=== PATIENT | male | born 1955 | race Caucasian/White ===

== ENCOUNTER 2018-06-23 16:00 | Inpatient (IN) ==
[2018-07-21] MEDS ORDERED: ceFAZolin Inj 2gm (Premix) 2 GM/50 ML BAG IV ONE ×2 (06:00→08:03)
[2018-07-21] MEDS ORDERED: Nasal Sanitizer POPSWAB ampule 3 AMP (Nozin) PREOP DOSE ENOS SCH (06:00)
[2018-07-21] MEDS ORDERED: SODIUM CHLORIDE 0.9% IV ONE (06:00)
[2018-07-21] MEDS ORDERED: VANCOMYCIN IV ONE (06:00)
[2018-07-21] MEDS ORDERED: Lactated Ringers 1,000 ML PRIMARY IV ONE ×5 (06:00→17:00)
[2018-07-21] MEDS ORDERED: LIDOCAINE W/ SODIUM BICARB 0.5 ML SYR SUBD ONE (06:00)
[2018-07-21] MEDS ORDERED: LIDOCAINE W/ SODIUM BICARB 0.5 ML SYR ONE (08:04)
[2018-07-21 08:50] LABS: BILIRUBIN,URINE NEGATIVE (NEG); CLARITY,URINE CLEAR (CLEAR); COLOR,URINE YELLOW (Y); GLUCOSE, URINE (UA) NEGATIVE (NEG); OCCULT BLOOD,URINE NEGATIVE (NEG); PH,URINE 5.5 (5.0-8.5); PROTEIN,URINE NEGATIVE (NEG); UROBILINOGEN,URINE 0.2 EU/dL (0.2)
[2018-07-21 08:52] LABS: URINE SAMPLE TYPE CLEAN CATCH URINE
[2018-07-21] MEDS ORDERED: MIDAZOLAM 5 MG/1 ML ONE (10:34)
[2018-07-21] MEDS ORDERED: fentaNYL Inj 250 MCG/5 ML VIAL ONE (10:34)
[2018-07-21] MEDS ORDERED: LIDOCAINE MPF 2% - 5 ML (20 MG/1 ML) ONE (10:35)
[2018-07-21] MEDS ORDERED: DEXAMETHASONE PF 10 MG/1 ML VIAL ONE (10:35)
[2018-07-21] MEDS ORDERED: KETOROLAC 30 MG/1 ML VIAL ONE (10:35)
[2018-07-21] MEDS ORDERED: Propofol 1,000 MG/100 ML VIAL IV ONE ×3 (10:35→14:54)
[2018-07-21] MEDS ORDERED: FAMOTIDINE 20 MG/2 ML VIAL IVP ONE (10:36)
[2018-07-21] MEDS ORDERED: REMIFENTANIL HCL 2 MG VIAL IV ONE ×3 (10:41→15:55)
[2018-07-21] MEDS ORDERED: Sodium Chloride 0.9% vial 10 ML ONE (11:43)
[2018-07-21] MEDS ORDERED: BACITRACIN 50,000 UNIT VIAL IRRIG ONE (11:43)
[2018-07-21] MEDS ORDERED: THROMBIN (BOVINE) 20,000 UNIT KIT TOPICAL ONE ×2 (11:43→14:01)
[2018-07-21] MEDS ORDERED: Vancomycin Inj 1gm vial ONE (11:43)
[2018-07-21] MEDS ORDERED: KETAMINE 100 MG/1 ML - 5 ML ONE (11:49)
[2018-07-21] MEDS ORDERED: Acetaminophen 1000mg Inj 1,000 MG/100 ML VIAL IV ONE (11:56)
[2018-07-21] MEDS ORDERED: ePHEDrine Inj 50 MG/ML AMP ONE (12:39)
--- NOTE | 2018-07-21 17:10 | OPNOTE.NEU ---
Operative Note Operative Note: Neurosurgical Services Operative Note [facility] [id number] Mathew Apodaca Date of Surgery: 07/21/18 Preoperative Diagnosis: Lumbar Spondylolisthesis, Lumbar Radiculopathy Post-Op Diagnosis Codes: Same Procedure(s): 1. Posterior decompression with complete facetectomy, 41370 -CSF fistula repair with laminectomy; 90270 2. Inner body arthrodesis; 3. Implantation Insert and Rotate Allograft Bone Spacer, 4. Non-segmental pedicle screw instrumentation, 5. Inner transverse fusion; () 6. Preparation of graft: A. [place] of local bone graft; same incision, B. [place] of morselized graft iliac crest; different incision; C. Bone marrow aspirate, D. Allograft demineralized bone matrix and calcium osteopromotive compound, 7. Intraoperative microscopy, microsurgical technique 8. Intraoperative fluoroscopy; [id number] 9. Continuous intraoperative motor and sensory monitoring Surgeon(s): Conor Mcneal MD Neurology Nurse(s): IAN Hernandez, IAN Mathew Anesthesia: General Anesthesia Anesthesiologist / CARE INFORMATION ASSOCIATE: Marnie Hunt CRNA Brief Findings: Severe neural compression in the foramen and in the spinal canal. Procedure(s): We discussed the procedure, risks, advantages and disadvantages of surgical intervention at length. To prevent further pain, disability and potential progression of neurologic deficits, the patient would like to proceed with surgery. Introduction: After obtaining informed consent, careful consideration of the pre-operative studies and evaluation, the patient asked to proceed with surgery. The patient was taken to the operating room, given an anesthetic, positioned and prepared for surgery. All pressure points were meticulously padded and great care was taken to insure the patient was appropriately positioned to avoid any abnormal strain on the extremities or any other area. The operative region was prepared with iodine solution and isolated aseptically using routine sterile draping. Position / Approach: The patient was placed in the prone position such that a posterior approach could be taken to the lumbar spine. EXPOSURE: A midline incision was opened sharply and extended slightly cephalad and caudad so as to incorporate the abnormal level of the patient's spine using the fluoroscope for visualization and planning. Dissection was carried with electrocautery through the subcutaneous tissues then subperiosteally along the spinous processes then lamina laterally to the transverse processes of L4 and L5. A self retaining retractor was inserted. CSF FISTULA REPAIR: As dissection continued through the subcutaneous fat in the sacral region, we note CSF egressing from deep within the wound. The leakage was traced to the L5-S1 inner-laminar space. There was a midline opeing in the dura I suspect from a previous injection. The bone (lamina) and ligamentum was removed with rongeurs. Proline, 6-0, was then used to close the opening in a water-tight manner. DECOMPRESSION: As the spine was exposed, it was clear that the involved joint was markedly incompetent. The joint was removed medial to lateral confirming there was foraminal stenosis from herniated disk as well as calcification which extended out into the foramen bilaterally. To adequately decompress the level, both facets were completely removed. The decompression was much more extensive then would be required for placement of a posterior arthrodesis alone. Both the traversing as well as the exiting nerve roots were decompressed on each side. There was herniated disk beneath the thecal sac and removal with down biting curettes with minimal manipulation of the thecal sac. Annulotomies were placed bilaterally and disk distractor's were placed in the disk space. While distracting, a radical discectomy was performed bilaterally. The epidural space was explored extensively also to confirm no further pressure was present on any of the exiting or traversing neural elements. ARTHRODESIS: The endplates above and below the abnormal disk were scraped of cartilaginous tissue and allograft insert and rotate machined bone graft spacers were placed bilaterally. The space between the bone graft was preloaded with the bone graft mixture described below, and this mixture was also placed lateral to the bone spacers within the disk space. The bone spacers were countersunk appropriately using the fluoroscope for visualization. HARVEST / PREPARATION of BONE GRAFT: The "bone graft" was prepared from the patient's own bone derived from the left hip collected by curetting bone from the hip through a separate slab incision(). This morselized bone was admixed with bone marrow aspirate also obtained from the hip (). Autologous local bone which was removed during the decompression through the same incision used for the fusion was stripped of surrounding soft tissues, morselized () and mixed with osteopromotive calcium compound as well as allograft demineralized bone matrix ([id number]), and this was combined with the previously described hip graft and concentrated bone marrow aspirate to form the "bone graft." NON SEGMENTAL INSTRUMENTATION: The pedicles of above and below the abnormal disk were then identified under direct vision as well as using the fluoroscope for visualization. The pedicles were probed and tapped and pedicle screws were advanced, which were further tested using motor stimulation and monitoring. The screws were identified to have appropriate impedances suggesting no evidence of any contact with the surrounding neural elements. Having placed pedicle screws, they were interconnected with rods, and a cross-link was placed. INNER TRANSVERSE FUSION: Attention was directed to the lateral aspect of the spine. The transverse processes above and below the level were eburnated using a high speed drill equipped with a sanket bur. Between this region of bone, the patient's own bone, described previously as "bone graft mixture", consisting of allograft, demineralized bone matrix, calcium compound, bone marrow aspirate, as well as morselized graft from the hip were placed between the transverse processes. OTHER TOOLS USED / UTILITY: All manipulation of the neural elements was performed using the microscope for visualization. As well, the fluoroscope was used to confirm the levels as indicated as well as to assist during implant placement and later to assess the patient's spinal alignment. There were no intra operative complications. Motor and sensory monitoring was performed throughout the procedure by a certified monitoring manometer technician in the room in communication with a remote monitoring physician and no abnormal neurological findings were encountered. NEED FOR BRIEF WRITER: Josh Boo PA-C, was instrumental throughout the operation to assist with exposure of the neural structures and protect them as the bony elements were removed. He was also instrumental during placement of the implant(s) which often takes more than two hands to perform safely and efficiently. Dionne Garcia also assisted and functioned in an identical manner. CLOSURE: Thereafter, the wound was irrigated with copious amounts of antibiotic impregnated saline solution. Immaculate hemostasis was achieved using thrombin soaked Gelfoam, bone wax along the bony margins, as well as electrocautery. The wound was then closed in anatomical layers using Vicryl suture in the subcutaneous tissues followed by dermabond and meseret on the skin. Estimated blood loss was less than 250 cc and none was replaced. Following the procedure the patient will be returned to the supine position then transferred to the recovery room, anticipating them to be in stable condition as compared to pre- surgically. Estimated Blood Loss: 250 cc Operative hemorrhage? Yes, expected amount. Drains: Hemovas Condition: Good Complications: None Authenticated by Dr. Mcneal On Production
[2018-07-21] MEDS ORDERED: Zolpidem Tab 5 MG TAB PO PRN (18:03)
[2018-07-21] MEDS ORDERED: LABETALOL 20 MG/4 ML (5 MG/1 ML) SYRINGE IVP PRN (18:03)
[2018-07-21] MEDS ORDERED: CALCIUM CARBONATE 500 MG (TUMS) CHEWABLE TABLET PO PRN (18:03)
[2018-07-21] MEDS ORDERED: Ondansetron ODT Tab 4 MG TAB PO PRN (18:03)
[2018-07-21] MEDS ORDERED: MORPHINE SULFATE 2 MG/1 ML IVP PRN (18:03)
[2018-07-21] MEDS ORDERED: HYDRALAZINE 20 MG/1 ML IVP PRN (18:03)
[2018-07-21] MEDS ORDERED: ACETAMINOPHEN 325 MG TABLET PO PRN (18:03)
[2018-07-21] MEDS ORDERED: ONDANSETRON 4 MG/2 ML VIAL IVP PRN (18:03)
[2018-07-21] MEDS ORDERED: DIAZEPAM 5 MG TABLET PO PRN (18:03)
--- NOTE | 2018-07-21 18:36 | CRNA.PROGR ---
Anesthesia Time - Procedure/Recovery Time Start Date: 07/21/18 Anesthesia : Time In: 12:01 Anesthesia : Time Out: 17:00 - Other Weight: 114.577 kg Height: 6 ft 1 in Body Mass Index (BMI): 33.3 Physical Status: P2 Anesthesia Type: General Anesthesia : ET
[2018-07-21] MEDS: KETOROLAC 15 MG/1 ML VIAL IVP SCH (19:15)
[2018-07-21] MEDS: D5-1/2NS + 20mEq KCL 1,000 ML PRIMARY IV SCH (19:16)
[2018-07-21] MEDS: ceFAZolin Inj 1 GM in Sodium Chloride 0.9% 100 ML IV SCH (19:16)
[2018-07-21] MEDS: oxyCODONE-ACETAMINOPHEN 5-325 TAB PO PRN (20:41)
[2018-07-22] MEDS: KETOROLAC 15 MG/1 ML VIAL IVP SCH ×4 (01:58→20:50)
[2018-07-22] MEDS: ceFAZolin Inj 1 GM in Sodium Chloride 0.9% 100 ML IV SCH ×3 (04:11→19:24)
[2018-07-22] MEDS: D5-1/2NS + 20mEq KCL 1,000 ML PRIMARY IV SCH ×2 (04:11→18:38)
[2018-07-22] MEDS: oxyCODONE-ACETAMINOPHEN 5-325 TAB PO PRN ×4 (04:20→20:51)
[2018-07-22 05:31] LABS: BASOPHILS # (AUTO) 0 10*3/UL; BASOPHILS % (AUTO) 0 % (0-1); EOSINOPHILS # (AUTO) 0 10*3/UL; EOSINOPHILS % (AUTO) 0 % (0-8); Hematocrit [HCT] 36.9 % (42.0-52.0); Hemoglobin [HGB] 11.9 g/dL (14.0-18.0); LYMPHOCYTES # (AUTO) 0.73 10*3/uL; MEAN CORPUSCULAR HGB CONC 32.2 g/dL (33-37); MEAN CORPUSCULAR VOLUME 83.7 FL (80-90); MEAN PLATELET VOLUME 11.5 FL (7.4-12.2); MONOCYTES # (AUTO) 0.47 10*3/UL (0.3-0.8); MONOCYTES % (AUTO) 4.1 % (5-15); NEUTROPHILS # (AUTO) 10.22 10*3/UL; NEUTROPHILS % (AUTO) 89.3 % (50-80); RED BLOOD COUNT 4.41 10^6/uL (4.70-6.10)
[2018-07-22 05:42] LABS: BLOOD UREA NITROGEN 18 mg/dL (7-22); BUN/CREATININE RATIO 16.36 (6-20)
[2018-07-22 05:46] LABS: PLATELET MORPHOLOGY COMMENT NORMAL MORPHOLOGY (NORM); RBC MORPHOLOGY COMMENT NORMAL MORPHOLOGY (NORM); WBC MORPHOLOGY COMMENT NORMAL MORPHOLOGY (NORM)
[2018-07-22] MEDS: Terazosin Cap 5 MG CAP PO SCH (08:49)
--- NOTE | 2018-07-22 09:55 | NEURO.PROG ---
Subjective Post Op Day: One Pain Management: PO Ny Catheter: No Flatus: Yes Diet: Regular Ambulating: Yes Date of Service: 07/22/18 Interval History: Mr. Apodaca is post op day one, s/p posterior lumbar discectomy and inner body fusion, single level at L4-5. He is doing well, ambulating with no difficulty. He reports his pain is controlled . Objective : Data - Labs CBC and BMP: 07/22/18 04:39 07/22/18 04:39 - Vital Signs Vital Signs and I&O: Vital Signs - Last Taken Temperature 99.4 F 07/22/18 04:32 Pulse Rate 88 07/22/18 04:32 Respiratory Rate 16 07/22/18 04:32 Blood Pressure 111/60 07/22/18 04:32 Pulse Ox 96 07/22/18 04:32 Intake and Output (24hr x 4 totals) 07/20/18 07/21/18 07/22/18 07/23/18 05:59 05:59 05:59 05:59 Intake Total 4994 / 4994 Output Total 2150 / 2150 Balance 2844 / 2844 Objective : Exam - General General Appearance: No Acute Distress, Cooperative - Head Head Exam: Normal Inspection - Eye Eye Exam: Normal Appearance - ENT Additonal ENT Exam Details: patent airway and no difficulty with swallowing. - Neck Neck Exam: Normal Inspection, Full ROM - Respiratory Respiratory Exam: Breathing Non Labored - Cardiovascular Cardiovascular Exam: RRR - GI/Abdominal GI/Abdominal Exam: Non Tender, Non Distended - Rectal Rectal Exam: Deferred - External Exam: Deferred - Extremities Extremities Exam: Normal Inspection, Full ROM - Back Additional Back Exam Details: Midline lumbar post surgical wound intact. Surgical drain present with increased output. Not removed yet. - Neurological Neurological Exam: Alert, Oriented x 3, Normal Gait - Psychiatric Psychiatric Exam: Normal Affect, Normal Mood - Integumentary Integumentary Exam: Normal Color, Warm Additional Integumentary Exam Details: Intact surgical lumbar surgical wound. - Central Line Examination Central Line Present on Admission: No Assessment and Plan - Assessment / Plan Additional Assessment/Plan Details: Post op day 1, s/p L4-5 single level posterior lumbar discectomy and inner body fusion. He is doing well and ambulating with no difficulty, with physical therapy. Monitor surgical drain out and possible discharge late this afternoon -vs- tomorrow. Continue physical therapy.
--- NOTE | 2018-07-22 12:46 | CRNA.PROGR ---
Anesthesia Note - Progress Notes Anesthesia Progress Note: Lying in bed. States he's quite comfortable. Rates his pain at 3. States he has received pain medicine today. States throat and respiratory system feels good. He still has his Urinary catheter in place. States its to come out later today. Has been up and walked. States he gets dizzy after a while being up. 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 Laboratory Results 07/22/18 07/22/18 04:39 04:39 WBC 11.44 H RBC 4.41 L Hgb 11.9 L Hct 36.9 L MCV 83.7 MCH 27.0 MCHC 32.2 L RDW Std Deviation 39.8 RDW Coeff of Mary 13.4 Plt Count 223 MPV 11.5 Immature Gran % (Auto) 0.2 Neut % (Auto) 89.3 H Lymph % (Auto) 6.4 L [place] % (Auto) 4.1 L Eos % (Auto) 0 Baso % (Auto) 0 Immature Gran # (Auto) 0.02 Neut # (Auto) 10.22 Lymph # (Auto) 0.73 [place] # (Auto) 0.47 Eos # (Auto) 0 Baso # (Auto) 0 WBC Morphology Comment Normal morphology Plt Morphology Comment Normal morphology RBC Morph Comment Normal morphology Sodium 140 Potassium 4.5 Chloride 110 Carbon Dioxide 23 Anion Gap 7 BUN 18 Creatinine 1.1 Estimated GFR > 60 BUN/Creatinine Ratio 16.36 Glucose 144 H Calculated Osmolality 294.0 H Calcium 8.3 L VS Temperature 97.3 F 07/22/18 07:47 Temperature Source Axillary 07/22/18 07:47 Pulse Rate 82 07/22/18 07:47 Pulse Rhythm Regular 07/22/18 07:00 Pulse Strength Normal 07/22/18 07:00 Respiratory Rate 18 07/22/18 07:47 Blood Pressure Position Semi-Tyler 07/22/18 07:47 Blood Pressure 133/77 07/22/18 07:47 Blood Pressure Mean 95 07/22/18 07:47 Pulse Ox 95 07/22/18 11:00 Oxygen Delivery Method Room Air 07/22/18 11:00 Oxygen Flow Rate 2 07/22/18 04:32 Room Air Challenge 94 07/22/18 04:15 Weight 118.388 kg 07/22/18 11:44 Height 6 ft 1 in 07/21/18 18:16 Body Mass Index (BMI) 33.3 07/21/18 18:35 No apparent anesthetic difficulties.
--- NOTE | 2018-07-22 14:52 | PTI REPORT ---
Thank you for the referral of Mathew Apodaca. He was seen on 07/22/18 for an inpatient evaluation status post lumbar fusion. SUBJECTIVE: The patient is a 63-year-old male. The patient reports he spoke with Dr. Mcneal this morning and had the option of being discharged either later today or possibly tomorrow, depending on the amount of drainage into his hemovac. He also states that he is ready to get up. PAST MEDICAL HISTORY: Past medical history can be found in the patient's medical record. OBJECTIVE FINDINGS: Pain: The patient reports a pain level currently of 3/10 on the verbal analog scale (0=no pain, 10=worst pain) which did increase to a 6/10 with mobility. Strength: Specific strength measurements were not performed due to recent surgery; however, after verbal education on his lumbar fusion restriction the patient was able to perform return demonstration as well as verbal confirmation of no bending/lifting/twisting, no lifting over 5 pounds, and log rolling. Bed mobility: After verbal education the patient was able to perform bed mobility with log roll to the edge of the bed with increased time but with no assistance from the therapist. Ambulation: The patient required moderate assistance the first time with donning his back brace that was provided by Dr. Mcneal's office and was able to perform ambulatory activities for approximately 50 feet within his room with the lumbar brace, standard walker, gait belt, and contact guard assistance followed by the patient ambulating out in the hallway x150 feet, again with the back brace, gait belt, stand by assistance, and the walker. ASSESSMENT: Problem List: Recent lumbar fusion Physical Therapy Goals: To be met by discharge from inpatient: Patient will be educated on donning and doffing back brace and perform returned demonstration on proper use. Patient will be able to recall and follow lumbar fusion precautions. Patient will be able to ambulate up to 300 feet continuously with appropriate assistive device. Patient will be able to ascend and descend a flight of stairs. TREATMENT PLAN: Patient will be seen B.I.D during the week and one time per day over the weekend as an inpatient to address the above goals and objectives. INITIAL TREATMENT: Treatment today consisted of the initial evaluation followed by functional activity. Following ambulation the patient was brought back in the room where he was educated in the following exercises to be done including quad sets, glut sets, and active ankle pumps. A back brace was not issued by the physical therapy department; however, was provided by Dr. Mcneal's office. The patient's spouse was present. We reviewed donning and doffing the back brace and proper adjustments as well as all of his precautions. FROY
--- NOTE | 2018-07-22 15:53 | OTI REPORT ---
Thank you for the referral of Mathew Apodaca. He was seen on 07/22/18 for an occupational therapy inpatient evaluation status post lumbar fusion. SUBJECTIVE: The patient is a 63-year-old male who is being seen secondary to having a lumbar fusion. The patient lives at home with his ; however, he will be home by himself most of the day as she is a teacher. Prior to admission the patient was independent with all ADLs and functional activities. PAST MEDICAL HISTORY: Past medical history can be found in the patient's medical record. OBJECTIVE FINDINGS: Bed mobility: The patient was able to log roll from supine to sit with min assist. Activities of daily living: While sitting edge of bed the patient was educated on his bending/lifting/twisting precautions and how to use adaptive devices to follow his precautions with dressing tasks. The patient was issued a sign poster, sock aide, bath sponge, and long handled shoe horn to increase his independence at home. He demonstrated being able to doff his socks with the sign poster independently. He donned his underwear and shorts with a sign poster independently. He donned the first sock with the sock aide with min verbal cues but was able to don the second sock independently. The patient was also issued a high rise toilet seat with handles as he is a very tall gentleman and they only have the low toilets in their home. The patient was also issued a shower chair to sit on during showers. ASSESSMENT: The patient would benefit from the adaptive devices to increase his independence and to be able to follow his back precautions when he returns home. At this point in time the patient was independent with use of adaptive devices and will not need any further occupational therapy. Short-Term Goals: To be met by discharge from inpatient: Patient will demonstrate modified independence with dressing lower extremities with use of adaptive devices. Patient will be able to complete log rolls for all functional bed transfers. Patient will be able to complete functional transfers with stand by assistance. Long-Term Goals: To be met following discharge from inpatient: Patient will be independent and safe with all functional transfers and ADLs with use of adaptive devices. TREATMENT PLAN: Patient will be seen for OT evaluation only as he met his goals and objectives. INITIAL TREATMENT: Treatment today consisted of the initial evaluation followed by the patient being educated in safe transfers and safety at home when using the walker. FROY
--- NOTE | 2018-07-22 15:56 | PT.PROG ---
Progress Note Progress Note: S. Patient stated he is feeling much better this afternoon compared to this morning. O. patient ambulated 180 feet around the nurses station and was returned to his room where he performed log roll to get back into bed where he was left with alarm and call light. A. patient tolerated therapy well, he was able to perform log rolls and ambulation well, he would continue to benefit from skilled therapy to increase strength and mobility, he will perform stair training tomorrow AM. P. Continue POC.
[2018-07-23] MEDS: D5-1/2NS + 20mEq KCL 1,000 ML PRIMARY IV SCH (00:35)
[2018-07-23] MEDS: KETOROLAC 15 MG/1 ML VIAL IVP SCH ×4 (02:59→20:30)
[2018-07-23] MEDS: ceFAZolin Inj 1 GM in Sodium Chloride 0.9% 100 ML IV SCH ×3 (02:59→20:30)
[2018-07-23] MEDS: oxyCODONE-ACETAMINOPHEN 5-325 TAB PO PRN (03:00)
[2018-07-23] MEDS: Terazosin Cap 5 MG CAP PO SCH (08:59)
--- NOTE | 2018-07-23 11:13 | PT.PROG ---
Progress Note Progress Note: S: Mathew states that he is doing well this morning. Reports 2-3/10 pain. O: Tx consisted of: STS transfer from chair with SBA x 1, pt ambulated x 150 ft without use of AD and SBA x 1 safely. Pt was able to complete 1 flight of stairs with SBA x 1 and use of handrail on the left. Pt was brought back to his room and transferred into his chair safely. Chair alarm was set and call light placed within reach. Reviewed lumbar fusion precautions. A: Mathew was able to safely complete ambulation and stair activity safely without use of AD or assistance. Pt has met goals for physical therapy. P: Met goals for PT.
--- NOTE | 2018-07-23 15:55 | NEURO.PROG ---
Subjective Post Op Day: 2 Ny Catheter: No Diet: Regular Ambulating: Yes Additional Details: Mr. Apodaca is post op day #2, s/p posterior lumbar discectomy and inner body fusion, single level at L4-5. He is doing well; he reports ambulating without difficulty with PT this morning. He reports his pain is controlled. Objective : Data - Labs CBC and BMP: 07/22/18 04:39 07/22/18 04:39 - Vital Signs Vital Signs and I&O: Vital Signs - Last Taken Temperature 97.3 F 07/23/18 12:21 Pulse Rate 82 07/23/18 12:21 Respiratory Rate 12 07/23/18 12:21 Blood Pressure 145/76 07/23/18 12:21 Pulse Ox 96 07/23/18 15:00 Intake and Output (24hr x 4 totals) 07/21/18 07/22/18 07/23/18 07/24/18 05:59 05:59 05:59 05:59 Intake Total 4994 / 4994 4821 / 48 Weight Obtain Weight Start: 07/21/18 18:03 Freq: ADMIT Status: Complete Protocol: Document 07/21/18 18:03 [id number] (Rec: 07/21/18 18:15 [id number]) Obtain Weight Start: 07/21/18 18:03 Freq: DAILY 0500 Status: Active Protocol: Document 07/22/18 11:44 [id number] (Rec: 07/22/18 11:44 [id number]) Document 07/23/18 08:16 [id number] (Rec: 07/23/18 08:16 [id number]) 21 1100 / 1100 Output Total 2150 / 2150 1999 / 1999 570 / 570 Balance 2844 / 2844 2821 / 2821 530 / 530 Intake and Output - 8hrs 07/22/18 07/23/18 07/23/18 07/23/18 21:59 05:59 13:59 21:59 Intake: IV 1485 / 2241 756 / 2241 Intake Oral Amount 1440 / 2580 500 / 2580 1100 / 1100 Output: Output, Drainage Amount 140 / 300 40 / 300 120 / 150 30 / 150 Output, Urine Amount 1100 / 1700 600 / 1700 450 / 450 Other: Percent Meal Consumed Dinner 100% 100% Lunch Refused Weight 268 lb Weight Measurement Method Standing Scale Objective : Exam - General General Appearance: No Acute Distress, Cooperative - Neck Neck Exam: Normal Inspection - Respiratory Respiratory Exam: Breathing Non Labored - Extremities Extremities Exam: Normal Inspection, No Edema Present - Back Back Exam: Normal Inspection Additional Back Exam Details: Motor exam reveals good strength with knee extension, dorsiflexion, EHL, plantar flexion. - Neurological Neurological Exam: Alert, Oriented x 3, Moves All Extremities Equally Assessment and Plan - Assessment / Plan Additional Assessment/Plan Details: Post op day one, s/p posterior lumbar discectomy and inner body fusion, single level at L4-5. Drain output 80cc in last 8 hours. Monitor drain output overnight. Anticipate discharge in a.m. Continue ambulation as tolerated. Will see in a.m. Continue orders per Dr. Mcneal. Discussed with Dr. Mcneal
[2018-07-23] MEDS: DOCUSATE 100 MG CAPSULE PO PRN (20:31)
[2018-07-24] MEDS: ceFAZolin Inj 1 GM in Sodium Chloride 0.9% 100 ML IV SCH (04:09)
[2018-07-24 08:19] VITALS: BP 143/79; RESP 16; TEMP 98.4; O2SAT 100
[2018-07-24] MEDS: DOCUSATE 100 MG CAPSULE PO PRN (08:57)
[2018-07-24] MEDS: Terazosin Cap 5 MG CAP PO SCH (08:57)
--- NOTE | 2018-07-24 11:55 | NEURO.PROG ---
Subjective Post Op Day: 3 Pain Management: PO Ny Catheter: No Flatus: Yes Diet: Regular Ambulating: Yes Additional Details: Mr. Apodaca is POD #3, s/p L4-5 single level PLIF. He is doing well. Ambulating well without weakness or balance trouble. Had a bowel movement this morning. Hasn't taken a pain pill in 2 days as his pain has been tolerable. Patient ready for discharge home. Drain with 40cc overnight. Objective : Data - Labs CBC and BMP: 07/22/18 04:39 07/22/18 04:39 - Vital Signs Vital Signs and I&O: Vital Signs - Last Taken Temperature 98.4 F 07/24/18 08:00 Pulse Rate 83 07/24/18 08:00 Respiratory Rate 16 07/24/18 08:00 Blood Pressure 143/79 07/24/18 08:00 Pulse Ox 100 07/24/18 08:00 Intake and Output (24hr x 4 totals) 07/22/18 07/23/18 07/24/18 07/25/18 05:59 05:59 05:59 05:59 Intake Total 4994 / 4994 4821 / 4821 2150 / 2150 570 / 570 Output Total 2150 / 2150 1999 / 1999 2890 / 2890 345 / 345 Balance 2844 / 2844 2821 / 2821 -740 / -740 225 / 225 Objective : Exam - General General Appearance: No Acute Distress - Eye Eye Exam: Normal Appearance, EOMI - Neck Neck Exam: Normal Inspection - Respiratory Respiratory Exam: Breathing Non Labored - Extremities Extremities Exam: Normal Inspection, No Edema Present Additional Extremities Exam Details: Motor exam reveals good quad strength, foot dorsi and plantar flexion, EHL. Reflexes are intact and symmetrical bilateral knees and ankles. SHRUTHI hose in place. - Back Back Exam: Normal Inspection Additional Back Exam Details: Dressing clean, dry and intact. Drain pulled by nurse without complication. Dressing changed prior to DC home. - Neurological Neurological Exam: Alert, Oriented x 3, Reflexes Normal - Psychiatric Psychiatric Exam: Normal Affect - Integumentary Integumentary Exam: Warm, Dry, Intact Assessment and Plan - Assessment / Plan Additional Assessment/Plan Details: S/p L4-5 PLIF with innerbody fusion, POD #3, doing well. Ready for discharge home. Discharge instructions given. Rx for oxycodone sent to [facility] [place]. No ibuprofen or NSAIDs as discussed. F/u with Dr. Mcneal 08/12/18 in [place], sooner PRN.
--- NOTE | 2018-07-29 12:29 | PDOC(PROG) ---
General Note Progress Note: History and Physical HPI: See [facility] notes. Patient was scheduled to have an L4-5 fusion last month. The surgery was post-poned as he had a respiratory illness. He is now doing well. His neurologic symptoms have not changed. He would like to proceed with surgery. All, Meds, PMHx, PSHx, Habs, Social etc have not changed. EXAM: Awake and alert, oriented; afebrile HEENT: Atraumatic Neck: Supple Chest: CTA, RRR Abdomen: Benign Extremities: No C/C/E Neuro: Motor +5/5 Sens: in tact DTR's 2+ and sym SLR neg MRI: See [facility] notes Assessment: Ready for surgery PLAN: Proceed with L4-[address] Mcneal 07-21-2018 electronically
== END 2018-07-24 12:32 | disposition home or self-care (01) | DRG 460 ==
LOC: EDSTATUS 16:00 → OPS 07-21 07:54 → MED/SURG 07-21 17:41
PROVIDERS: ADMIT Neurological Surgery; ATTEND Neurological Surgery